=== PATIENT | male | born 1985 | race Two or more races ===

== ENCOUNTER 2017-03-28 02:25 | Emergency (ER) | payer MEDICAID, OTHER ==
[~2017-03-28] VITALS: Ht 185.4 cm; Wt 83.9 kg
--- NOTE | 2017-03-28 02:35 | NUR ---
Patient in room 4A, at bedside for MSE.
[2017-03-28] MEDS ORDERED: LORAZEPAM 0.5 MG TABLET PO ONE (02:45)
[2017-03-28] MEDS ORDERED: HYDROCODONE/APAP 10-325 MG TABLET PO ONE (02:45)
[2017-03-28] MEDS ORDERED: predniSONE 20 MG TABLET PO ONE (02:45)
[2017-03-28] MEDS ORDERED: HYDROCODONE/APAP 10-325 MG TABLET ONE (02:53)
[2017-03-28] MEDS ORDERED: LORAZEPAM 1 MG TABLET ONE (02:53)
[2017-03-28] MEDS ORDERED: predniSONE 20 MG TABLET ONE (02:54)
[2017-03-28 03:45] LABS: BASOPHILS % (AUTO) 0.8 % (0.0-2.0); EOSINOPHILS # (AUTO) 0.3 K/uL (0.0-0.7); EOSINOPHILS % (AUTO) 6.9 % (0.0-7.0); HEMATOCRIT 39.5 % (36.7-47.1); HEMOGLOBIN 13.3 g/dL (12.5-16.3); LYMPHOCYTES # (AUTO) 1.8 K/uL (20.0-40.0); LYMPHOCYTES % (AUTO) 44.2 % (20.5-51.5); MEAN CORPUSCULAR HGB CONC 34 g/dL (32.5-36.3); MEAN CORPUSCULAR VOLUME 88.8 fL (73.0-96.2); MONOCYTES # (AUTO) 0.5 K/uL (2.0-10.0); MONOCYTES % (AUTO) 13.5 % (0.0-11.0); NEUTROPHILS # (AUTO) 1.4 K/uL (1.8-8.9); NEUTROPHILS % (AUTO) 34.6 % (38.5-71.5); PLATELET COUNT (AUTO) 130 K/uL (152-348); RED BLOOD CELL COUNT(AUTO) 4.45 MIL/uL (4.06-5.63); WHITE BLOOD COUNT (AUTO) 4.1 K/uL (3.6-10.2)
[2017-03-28 03:51] LABS: CREATININE 0.9 mg/dL (0.6-1.3); POTASSIUM 3.6 mmol/L (3.5-5.1)
--- NOTE | 2017-03-28 04:00 | NUR ---
Pt out of ER, requested to go outside to check on car if girlfriend is still there. Pt ambulated out of ER with MD permission, steady gait.
[2017-03-28 04:02] LABS: BILIRUBIN,TOTAL 0.5 mg/dL (0.2-1.0); TOTAL PROTEIN, SERUM 6.1 g/dL (6.4-8.2)
--- NOTE | 2017-03-28 04:15 | NUR ---
Patient back to ER.
--- NOTE | 2017-03-28 04:40 | NUR ---
Patient discharged to home in stable conditon. Written and verbal after care instructions given. Patient verbalizes understanding of instructions. Pt ambulated out of ER with steady gait, all belongings with patient, no signs of acute distress.
[2017-03-28 04:44] VITALS: BP 116/82
== END 2017-03-28 04:40 | disposition home or self-care (01) ==
LOC: ER 02:25
DX: R07.9 Chest pain, unspecified (principal); R11.10 Vomiting, unspecified; R09.89 Other specified symptoms and signs involving the circulatory and respiratory systems; F41.9 Anxiety disorder, unspecified; R21 Rash and other nonspecific skin eruption; F17.200 Nicotine dependence, unspecified, uncomplicated
CPT/HCPCS: 36415; 70030-TC; 71045; 85025; 93005; A4663; J7512